=== PATIENT | male | born 1990 | race Caucasian/White ===

== ENCOUNTER 2020-01-30 09:01 | Emergency (ER) | payer BC, SELFPAY ==
[2020-01-30 09:02] VITALS: BP 155/92; PULSE 70; RESP 16; TEMP 37.1; O2SAT 99; BMI 28.6
--- NOTE | 2020-01-30 09:17 | CT_ITS ---
STUDY: CT ABDOMEN AND PELVIS WITHOUT CONTRAST REASON FOR EXAM: Male, 29 years old. Right flank pain radiating into groin today. No prior surgery or hx stones. RADIATION DOSAGE (If Supplied By Facility): CTDIvol = ( 9.59 ) mGy, DLP = ( 565.76 ) mGycm TECHNIQUE: Transaxial images were obtained from the dome of the diaphragm to the symphysis pubis without oral contrast, and without intravenous contrast. Sagittal and coronal images were reconstructed. Individualized dose optimization techniques were used for this CT. COMPARISON: None. FINDINGS: Mild patchy airspace disease and groundglass parenchymal opacities within the bilateral peripheral lower lobes is present. The visualized portions of the heart are within normal limits. Normal liver. Normal gallbladder and extrahepatic biliary system. Normal spleen. Normal pancreas. Normal bilateral adrenal glands. There is mild to moderate right hydronephrosis and ureteral dilatation with a distal UVJ stone as seen on series 2 image 27 measuring approximately 6 cm in longitudinal dimension and approximately 2 to 3 cm transverse. Normal left kidney. Normal visualized stomach. Normal small intestine. Normal colon. The appendix is visualized and appears normal. Normal abdominal aorta. Normal inferior vena cava. Normal retroperitoneum. Normal urinary bladder. Normal abdominal wall. Normal osseous structures. CT/Abdomen/Pelvis without Cont IMPRESSION: 1. Small to moderate right renal obstructive nephropathy with distal UVJ stone as above. 2. Mild bilateral regions of early patchy airspace disease and groundglass opacities of the lower lung parenchyma, clinically correlate. Electronically Signed: Tip Savage DO at 10:10 EDT , Service support ,
[2020-01-30 09:21] LABS: Bacteria 0 SEEN /hpf (None Seen); Mucous, Urine 0 SEEN /hpf (<or=2+); Squamous Epithelial Cells - UA 0 SEEN /hpf (0-5); White Blood Cells 0 SEEN /hpf (0-5)
[2020-01-30] MEDS: 0.9% Normal Saline 1,000 ML 125 ML IV (09:41)
[2020-01-30] MEDS: Ketorolac 30 MG/ML Syringe IV (09:42)
[2020-01-30] MEDS: Ondansetron 4 MG/2 ML Vial IV (09:42)
[2020-01-30] MEDS: Morphine 4 MG/ML Syringe IV (09:43)
[2020-01-30 09:46] LABS: Color, Urine Yellow (Yellow); Glucose, Dipstick Normal (Normal); Ketone-Dipstick Negative (Negative); Leukocyte Esterase-Dipstick Negative /ul (Negative); Nitrite-Dipstick Negative (Negative); Occult Blood-Urine 250 /ul (Negative); Protein-Dipstick Negative (Negative); Specific Gravity, Urine 1.025 (1.002-1.030); Urine Bilirubin Dipstick Negative (Negative); Urine Clarity Clear (Clear); Urine Urobilinogen Normal (Normal)
[2020-01-30 09:52] LABS: Absolute Lymphocyte Count 1.83 X10^3/uL (0.83-4.51); Basophil# 0.11 X10^3/uL; Basophil% 1.4 % (0-1); Eosinophils% 1.3 % (0-5); Hematocrit 35.2 % (40-54); Hemoglobin 11.8 g/dL (13.0-16.5); Lymphocyte # 1.83 X10^3/ul (4.0); Mean Corp Hgb Conc 33.5 g/dL (32-36); Mean Corpuscular Hgb 33.1 pg (27.0-32.0); Mean Corpuscular Volume 98.6 fL (80-94); Mean Platelet Vol. 11.1 fl (6.2-12.0); Monocyte# 0.55 X10^3/uL; Monocyte% 7.2 % (0-10); NRBC Flagged by Analyzer 0 % (0-5); Neutrophil # 4.98 X10^3/uL (2.7-7.7); Neutrophil % 65.6 % (47-70); Platelet Count 274 K/mm3 (150-450); RBC Distribution Width CV 13.2 % (11.6-14.6); Red Blood Count 3.57 M/mm3 (4.6-6.2); White Blood Count 7.6 K/mm3 (4.4-11.0)
[2020-01-30 09:56] LABS: Red Blood Cells-Urine 25-50 SEEN /hpf (0-5)
[2020-01-30 10:04] LABS: Anion Gap 6 (5-15); BUN 15 mg/dL (7-18); BUN/Creat Ratio 12.2 RATIO (10-20); Calcium,Total 9.2 mg/dL (8.5-10.1); Chloride 107 mmol/L (98-107); Creatinine, Serum 1.23 mg/dL (0.70-1.30); EST Glomerular Filtration Rate 73 mL/min (>60); Est Glom Filt Rate - Afr Amer 88 mL/min (>60); Estimated Creatinine Clearance 95.51 ml/min; Glucose 116 mg/dL (74-106); Potassium 3.9 mmol/L (3.5-5.1); Sodium Level 140 mmol/L (136-145)
--- NOTE | 2020-01-30 10:07 | ED.DCSUM_ITS ---
- ER Visit Summary Date of Service: 01/30/20 Chief Complaint: [Right flank pain] History of Present Illness: The patient is a 29 M [presents the emergency department complaint of right flank pain that started around 4 AM this morning. The pain came on suddenly. Said some nausea but no vomiting. Patient states the pain radiates from his right back to his right lower abdomen. He denies urinary symptoms. He denies any fever.] Patient has never had pain like this before. Patient has no medical history. Patient is a smoker. Physical Examination: [HEENT-PERRLA, EOMI. Cranial nerves II through XII grossly intact. TMs clear. Mucous membranes moist. No adenopathy. Cardiovascular-regular rate and rhythm without murmur or ectopy Lungs-clear to auscultation, chest wall stable without crepitus or subcu emphysema Abdomen-normoactive bowel sounds, soft, no rebound or rigidity, no peritoneal signs. Patient has tenderness palpation over right lower quadrant with some guarding. Patient does have CVA tenderness on the right. Extremities-intact ?4, normal range of motion, normal pulses, atraumatic] Test Results: [CBC with differential obtained was normal. Chemistries unremarkable. Urinalysis showed 25-50 RBCs but no signs of infection.] CT scan of the abdomen pelvis without contrast showed a small stone at the right UVJ with small amount of hydroureter noted. Official report from radiology pending. Emergency Department Course and Treatment: [Patient was medicated with Toradol, morphine, and Zofran. He felt markedly improved.] Treatment Plan: [Patient will be given a prescription for [place] as well as naproxen. Patient will be given urine strainers. Patient will be given referral to urology for follow-up. Patient advised to return if increasing pain, fever, vomiting, or condition should worsen anyway.] Disposition: [Discharged home in stable condition] Impression: [Right-sided kidney stone with colic] This note was generated with [employer] dictation software. It may contain incorrect words, spelling, and punctuation that were not noted in review of the chart prior to signing ED Disposition - Plan for ED Patient: Referrals: Care Physician,No Primary [Primary Care Provider] -
--- NOTE | 2020-01-30 10:10 | DCINST.ED_ITS ---
ED Disposition - Plan for ED Patient: Instructions: ED Renal Stone w Colic Prescriptions: Naproxen [Naprosyn] 500 mg PO BID PRN #20 tab Transmission Status: Pending to [address] Hydrocodone Bitart/Apap 5-325 [[place] 5MG-325MG] 1 tablet PO Q4H PRN PRN 2 Days #14 tablet PRN Reason: Pain Transmission Status: [facility] [place] [address] Referrals: Care Physician,No Primary [Primary Care Provider] - Puneet Mccormick MD [STAFF PHYSICIAN] - 3-5 Days
--- NOTE | 2020-01-30 10:10 | ED.DEP ---
ED Disposition - Plan for ED Patient: Instructions: ED Renal Stone w Colic Prescriptions: Naproxen [Naprosyn] 500 mg PO BID PRN #20 tab Transmission Status: Pending to [address] Hydrocodone Bitart/Apap 5-325 [[place] 5MG-325MG] 1 tablet PO Q4H PRN PRN 2 Days #14 tablet PRN Reason: Pain Transmission Status: [facility]-[address] [place] [address] Referrals: Care Physician,No Primary [Primary Care Provider] - Puneet Mccormick MD [STAFF PHYSICIAN] - 3-5 Days
[2020-01-30 10:29] VITALS: BP 142/64; PULSE 88; RESP 16; O2SAT 99
== END 2020-01-30 10:31 | disposition home or self-care (01) ==
LOC: ED 09:50
PROVIDERS: Emergency Provider Emergency Medicine
DX: N13.2 Hydronephrosis with renal and ureteral calculous obstruction (principal); F17.200 Nicotine dependence, unspecified, uncomplicated
CPT/HCPCS: 74176; 80048; 81001; 85025; 96361; 96374; 96375; 99284; J7030; A4216; J2405